=== PATIENT | female | born 1980 | race Two or more races ===

== ENCOUNTER 2016-11-06 07:56 | Emergency (ER) | payer MEDICAID ==
[~2016-11-06] VITALS: Ht 167.6 cm; Wt 70.3 kg
[2016-11-06 09:06] LABS: Urine Bilirubin Negative (Negative); Urine Blood Negative /uL (Negative); Urine Color Yellow (Yellow); Urine Glucose Normal (Normal); Urine Ketone Negative (Negative); Urine Mucus FEW (None Seen); Urine Nitrite Negative (Negative); Urine RBC 1 /hpf (0 - 4); Urine Squamous Epithelial Cell FEW /hpf (<5)
[2016-11-06 09:17] LABS: Basophils # (auto) 0 uL; Basophils % (auto) 0.5 % (0.0-2.0); CONDITION Y; Eosinophils # (auto) 0.1 uL; Eosinophils % (auto) 1.1 % (0.0-7.0); Hemoglobin 14.6 g/dL (12.2-16.2); Lymphocytes # (auto) 1.8 uL; Lymphocytes % (auto) 28.2 % (10.0-50.0); Mean Corpuscular Hemoglobin 31.5 pg (28.0-32.0); Mean Corpuscular Hgb Conc. 33.9 g/dL (32.0-36.0); Mean Corpuscular Volume 92.9 fL (80.0-100.0); Mean Platelet Volume 8.5 fL (7.4-10.4); Monocytes # (auto) 0.5 uL; Monocytes % (auto) 7.1 % (0.0-12.0); Neutrophils % (auto) 63.1 % (37.0-80.0); Platelet Count (auto) 306 10^3/uL (140-450); Red Cell Distribution Width 13.2 % (11.6-16.0); White Blood Cell 6.4 10^3/uL (4.4-10.8)
[2016-11-06 09:48] LABS: Albumin 3.9 g/dL (3.4-5.0); BUN/Creatinine Ratio 10.9; Bilirubin, Total 0.4 mg/dL (0.2-1.0); Calcium 8.8 mg/dL (8.5-10.1); Potassium 3.8 mmol/L (3.5-5.1); Total Protein 7.3 g/dL (6.4-8.2)
[2016-11-06] MEDS ORDERED: FLUCONAZOLE 100 MG TAB PO ONE (11:30)
[2016-11-06 12:54] VITALS: BP 108/73
== END 2016-11-06 13:20 | disposition home or self-care (01) ==
LOC: ER 07:56
DX: R10.9 Unspecified abdominal pain (principal); N89.8 Other specified noninflammatory disorders of vagina; R30.0 Dysuria
CPT/HCPCS: 36415; 80053; 81001; 81025; 85025

== ENCOUNTER 2019-02-03 11:30 | Emergency (ER) | payer MEDICAID ==
[~2019-02-03] VITALS: Ht 165.1 cm; Wt 85.7 kg
[2019-02-03 13:22] VITALS: BP 106/56
[2019-02-03] MEDS ORDERED: TETRACAINE HCL 0.5% OPTH(EYE) SOLN 4ML LEFTEYE ONE (14:30)
[2019-02-03] MEDS ORDERED: FLUORESCEIN SOD 1 MG TEST STRIP OP ONE (14:30)
== END 2019-02-03 15:00 | disposition home or self-care (01) ==
LOC: ER 11:30
DX: H10.32 Unspecified acute conjunctivitis, left eye (principal); R51 Headache
CPT/HCPCS: 70450

== ENCOUNTER 2021-04-13 12:47 | Emergency (ER) | payer MEDICAID ==
[~2021-04-13] VITALS: Ht 162.6 cm; Wt 81.4 kg
[2021-04-13 13:20] LABS: Urine Bacteria NONE SEEN /hpf (None Seen); Urine Blood Negative /uL (Negative); Urine Specific Gravity 1.012 (1.001-1.035); Urine WBC 1 /hpf (0 - 5)
[2021-04-13 13:21] LABS: Basophils # (auto) 0 10 ^3/uL (0-0.2); Basophils % (auto) 0.4 % (0.0-2.0); Eosinophils # (auto) 0 10 ^3/uL (0-0.8); Eosinophils % (auto) 0.6 % (0.0-7.0); Hematocrit 44.7 % (36.0-46.0); Hemoglobin 15.2 g/dL (12.2-16.2); Lymphocytes # (auto) 1.6 10 ^3/uL (0.4-5.4); Lymphocytes % (auto) 19.7 % (10.0-50.0); Mean Corpuscular Hemoglobin 31.7 pg (28.0-32.0); Monocytes # (auto) 0.7 10 ^3/uL (0-1.3); Monocytes % (auto) 8.3 % (0.0-12.0); Neutrophils # (auto) 5.8 10 ^3/uL (1.6-8.6); Nucleated Red Blood Cells % 0.1 %; Red Cell Distribution Width 13.4 % (11.8-14.3); White Blood Cell 8.1 10^3/uL (4.4-10.8)
[2021-04-13 13:34] LABS: Potassium 4.2 mmol/L (3.5-5.1)
[2021-04-13 13:44] LABS: Albumin 3.9 g/dL (3.4-5.0); BUN/Creatinine Ratio 11.5; Bilirubin, Total 0.6 mg/dL (0.2-1.0); Calcium 8.9 mg/dL (8.5-10.1); Magnesium 2.9 mg/dL (1.6-2.6); Total Protein 6.8 g/dL (6.4-8.2)
[2021-04-13 16:45] VITALS: BP 104/61
== END 2021-04-13 16:40 | disposition home or self-care (01) ==
LOC: ER 12:47
DX: Z32.01 Encounter for pregnancy test, result positive (principal); R35.0 Frequency of micturition
CPT/HCPCS: 36415; 80053; 81001; 81025; 83735; 84702; 85025

== ENCOUNTER 2023-04-18 08:08 | Emergency (ER) | payer MEDICAID ==
[~2023-04-18] VITALS: Ht 162.6 cm; Wt 85.6 kg
[2023-04-18 09:09] LABS: Basophils # (auto) 0 10 ^3/uL (0-0.2); Basophils % (auto) 0.3 % (0.0-2.0); Eosinophils # (auto) 0.1 10 ^3/uL (0-0.8); Eosinophils % (auto) 0.7 % (0.0-7.0); Hematocrit 47.3 % (36.0-46.0); Hemoglobin 15.7 g/dL (12.2-16.2); Lymphocytes # (auto) 1.5 10 ^3/uL (0.4-5.4); Lymphocytes % (auto) 17.3 % (10.0-50.0); Mean Corpuscular Hemoglobin 31.5 pg (28.0-32.0); Mean Corpuscular Hgb Conc. 33.1 g/dL (32.0-36.0); Mean Corpuscular Volume 95.1 fL (80.0-100.0); Monocytes # (auto) 0.4 10 ^3/uL (0-1.3); Monocytes % (auto) 4.6 % (0.0-12.0); Neutrophils # (auto) 6.8 10 ^3/uL (1.6-8.6); Neutrophils % (auto) 77.1 % (37.0-80.0); Red Blood Cells 4.98 10^6/uL (4.0-5.20); Red Cell Distribution Width 14.2 % (11.8-14.3); White Blood Cell 8.8 10^3/uL (4.4-10.8)
[2023-04-18 09:26] LABS: Alanine Aminotransferase 18 U/L (7-40); Alkaline Phosphatase 61 U/L (46-116); Anion Gap 8 (5-15); Aspartate Aminotransferase 10 U/L (13-40); BUN/Creatinine Ratio 8.2 (10.0-20.0); Blood Urea Nitrogen 7 mg/dL (9-23); Calcium 9.4 mg/dL (8.5-10.1); Carbon Dioxide 25 mmol/L (20-30); Chloride 104 mmol/L (98-107); Glucose 107 mg/dL (74-106); Potassium 3.8 mmol/L (3.5-5.1); Sodium 137 mmol/L (136-145)
[2023-04-18 09:27] LABS: Bilirubin, Total 0.6 mg/dL (0.2-1.0); INR 1.06 (0.9-1.15); Partial Thromboplastin Time 28.2 SEC (24.5-34.5); Prothrombin Time 11.1 sec (9.3-11.8); Total Protein 6.8 g/dL (5.7-8.2)
[2023-04-18 09:37] LABS: Urine WBC None Seen /hpf (0 - 5)
[2023-04-18 09:54] LABS: Urine Amorphous Crystal FEW /hpf (None Seen); Urine Bacteria NONE SEEN /hpf (None Seen); Urine Blood 3+ /uL (Negative); Urine Clarity HAZY (Clear); Urine Color Yellow (Yellow); Urine Protein, UAD Negative (Negative); Urine Specific Gravity 1.021 (1.001-1.035); Urine Urobilinogen Normal (Negative); Urine pH 6.5 (5.0-8.0)
[2023-04-18 12:19] VITALS: BP 112/65; TEMP 97.7
[2023-04-18] MEDS ORDERED: CEPH250C PO (12:23)
[2023-04-18 12:27] VITALS: PULSE 63; RESP 16; O2SAT 100
== END 2023-04-18 12:36 | disposition home or self-care (01) ==
LOC: ER 08:08
DX: O23.41 Unspecified infection of urinary tract in pregnancy, first trimester (principal); R10.2 Pelvic and perineal pain; N39.0 Urinary tract infection, site not specified; Z3A.01 Less than 8 weeks gestation of pregnancy
CPT/HCPCS: 36415; 76801; 80053; 81001; 84702; 85025; 85610; 85730

== ENCOUNTER 2024-01-24 09:34 | Inpatient (IN) | payer MEDICAID ==
[~2024-01-24] VITALS: Ht 167.6 cm; Wt 82.5 kg
[~2024-01-24 09:34] MED LIST: CEPH250C PO
[2024-01-24 10:23] LABS: Basophils # (auto) 0 10 ^3/uL (0-0.2); Basophils % (auto) 0.5 % (0.0-2.0); Eosinophils # (auto) 0 10 ^3/uL (0-0.8); Eosinophils % (auto) 0.7 % (0.0-7.0); Hematocrit 45.9 % (36.0-46.0); Hemoglobin 15.9 g/dL (12.2-16.2); Lymphocytes # (auto) 1.7 10 ^3/uL (0.4-5.4); Lymphocytes % (auto) 23.3 % (10.0-50.0); Mean Corpuscular Hemoglobin 32.5 pg (28.0-32.0); Mean Corpuscular Hgb Conc. 34.6 g/dL (32.0-36.0); Mean Corpuscular Volume 94.1 fL (80.0-100.0); Monocytes # (auto) 0.3 10 ^3/uL (0-1.3); Monocytes % (auto) 4.8 % (0.0-12.0); Neutrophils # (auto) 5.1 10 ^3/uL (1.6-8.6); Neutrophils % (auto) 70.7 % (37.0-80.0); Platelet Count (auto) 304 10^3/uL (140-450); Red Blood Cells 4.88 10^6/uL (4.0-5.20); Red Cell Distribution Width 13.3 % (11.8-14.3); White Blood Cell 7.2 10^3/uL (4.4-10.8)
[2024-01-24 10:45] LABS: Alanine Aminotransferase 31 U/L (7-40); Albumin 4.5 g/dL (3.2-4.8); Alkaline Phosphatase 68 U/L (46-116); Anion Gap 7 (5-15); Aspartate Aminotransferase 14 U/L (13-40); BUN/Creatinine Ratio 9.4 (10.0-20.0); Blood Urea Nitrogen 9 mg/dL (9-23); Calcium 9.8 mg/dL (8.7-10.4); Carbon Dioxide 24 mmol/L (20-31); Chloride 107 mmol/L (98-107); Glucose 99 mg/dL (74-106); Potassium 4.1 mmol/L (3.5-5.1); Sodium 138 mmol/L (136-145)
[2024-01-24 10:46] LABS: Bilirubin, Total 0.8 mg/dL (0.2-1.0); Total Protein 7.4 g/dL (5.7-8.2)
[2024-01-24] MEDS: ASPirin 81 mg TAB PO ONE (11:05)
[2024-01-24 11:09] VITALS: RESP 18; O2SAT 98
[2024-01-24 15:32] VITALS: PULSE 48; RESP 18; O2SAT 96
[2024-01-24 16:53] LABS: Urine Bacteria FEW /hpf (None Seen); Urine Blood Negative /uL (Negative); Urine Clarity Turbid (Clear); Urine Color Light-Yellow (Yellow); Urine Mucus FEW (None Seen); Urine Protein, UAD TRACE (Negative); Urine Specific Gravity 1.021 (1.001-1.035); Urine Urobilinogen Normal (Negative); Urine WBC 7 /hpf (0 - 5); Urine pH 5.5 (5.0-9.0)
[2024-01-24] MEDS: MORPHINE SULFATE INJ 2 MG/ml SYRG IV PRN (18:42)
[2024-01-24] MEDS: NITROGLYCERIN 0.4 MG SL TAB SL PRN (18:44)
[2024-01-24 19:47] VITALS: PULSE 55; RESP 18; O2SAT 97
[2024-01-24 20:00] VITALS: PULSE 55; PULSE 67; RESP 18; O2SAT 97
[2024-01-24 21:00] VITALS: BP 115/50; PULSE 53; RESP 18; TEMP 97.9; O2SAT 95
[2024-01-25] VITALS (7 sets, daily range): BP systolic 102–117; BP diastolic 46–61; PULSE 52–71; RESP 16–19; TEMP 98–98.6; O2SAT 96–100
[2024-01-25 11:00] LABS: Basophils # (auto) 0 10 ^3/uL (0-0.2); Basophils % (auto) 0.3 % (0.0-2.0); Eosinophils # (auto) 0.1 10 ^3/uL (0-0.8); Eosinophils % (auto) 0.8 % (0.0-7.0); Hematocrit 45.8 % (36.0-46.0); Hemoglobin 15.8 g/dL (12.2-16.2); Lymphocytes # (auto) 1.3 10 ^3/uL (0.4-5.4); Lymphocytes % (auto) 19.5 % (10.0-50.0); Mean Corpuscular Hemoglobin 32.3 pg (28.0-32.0); Mean Corpuscular Hgb Conc. 34.6 g/dL (32.0-36.0); Mean Corpuscular Volume 93.5 fL (80.0-100.0); Monocytes # (auto) 0.2 10 ^3/uL (0-1.3); Monocytes % (auto) 2.5 % (0.0-12.0); Neutrophils # (auto) 5.2 10 ^3/uL (1.6-8.6); Neutrophils % (auto) 76.9 % (37.0-80.0); Platelet Count (auto) 286 10^3/uL (140-450); Red Cell Distribution Width 13.2 % (11.8-14.3); White Blood Cell 6.7 10^3/uL (4.4-10.8)
[2024-01-25 11:07] LABS: Anion Gap 6 (5-15); Carbon Dioxide 27 mmol/L (20-31); Chloride 106 mmol/L (98-107); Potassium 3.9 mmol/L (3.5-5.1); Sodium 139 mmol/L (136-145)
[2024-01-25 11:09] LABS: Calcium 9.7 mg/dL (8.7-10.4)
[2024-01-25 11:13] LABS: Glucose 112 mg/dL (74-106); Triglycerides 138 mg/dL (< 150)
[2024-01-25 11:14] LABS: BUN/Creatinine Ratio 9.8 (10.0-20.0); Blood Urea Nitrogen 9 mg/dL (9-23); LDL Cholesterol 145 mg/dL (< 100)
[2024-01-25 11:15] LABS: Cholesterol 192 mg/dL (< 200); HDL Cholesterol 33 mg/dL (40-59)
[2024-01-25] MEDS ORDERED: IBUPROFEN 400 MG TAB PO PRN (18:30)
[2024-01-25] MEDS: PANTOPRAZOLE 40 MG TAB PO ONE (18:45)
[2024-01-25] MEDS: ATORVASTATIN 20 MG TAB PO SCH (21:25)
[2024-01-26] VITALS (7 sets, daily range): BP systolic 101–110; BP diastolic 46–70; PULSE 53–59; RESP 17–20; TEMP 97.3–98.7; O2SAT 95–100
[2024-01-26] MEDS: PANTOPRAZOLE 40 MG TAB PO SCH (05:30)
[2024-01-26 07:07] LABS: Basophils # (auto) 0 10 ^3/uL (0-0.2); Basophils % (auto) 0.4 % (0.0-2.0); Eosinophils # (auto) 0.1 10 ^3/uL (0-0.8); Eosinophils % (auto) 1.2 % (0.0-7.0); Hematocrit 46.4 % (36.0-46.0); Hemoglobin 15.8 g/dL (12.2-16.2); Lymphocytes # (auto) 1.9 10 ^3/uL (0.4-5.4); Mean Corpuscular Hemoglobin 32.2 pg (28.0-32.0); Mean Corpuscular Hgb Conc. 34.2 g/dL (32.0-36.0); Mean Corpuscular Volume 94.2 fL (80.0-100.0); Monocytes # (auto) 0.5 10 ^3/uL (0-1.3); Monocytes % (auto) 6.1 % (0.0-12.0); Neutrophils # (auto) 5.8 10 ^3/uL (1.6-8.6); Neutrophils % (auto) 69.3 % (37.0-80.0); Nucleated Red Blood Cells % 0.1 %; Platelet Count (auto) 295 10^3/uL (140-450); Red Blood Cells 4.92 10^6/uL (4.0-5.20); Red Cell Distribution Width 13.1 % (11.8-14.3); White Blood Cell 8.4 10^3/uL (4.4-10.8)
[2024-01-26 07:23] LABS: Anion Gap 5 (5-15); Carbon Dioxide 26 mmol/L (20-31); Chloride 107 mmol/L (98-107); Potassium 4.1 mmol/L (3.5-5.1); Sodium 138 mmol/L (136-145)
[2024-01-26 07:24] LABS: Calcium 9.6 mg/dL (8.7-10.4)
[2024-01-26 07:29] LABS: BUN/Creatinine Ratio 9.3 (10.0-20.0); Blood Urea Nitrogen 9 mg/dL (9-23); Glucose 89 mg/dL (74-106)
[2024-01-26] MEDS: ACETAMINOPHEN 325 MG TAB PO PRN (08:14)
[2024-01-26] MEDS ORDERED: CHOL1TAB30 PO (09:22)
[2024-01-26 11:02] LABS: Hepatitis B Surface Antigen Negative (Negative)
[2024-01-26 11:23] LABS: Hepatitis C Antibody Negative (Negative)
[2024-01-26] MEDS: DOCUSATE SOD 100 MG CAP PO PRN (12:07)
[2024-01-27] VITALS (7 sets, daily range): BP systolic 99–113; BP diastolic 45–67; PULSE 53–84; RESP 13–20; TEMP 97.4–98.4; O2SAT 96–100
[2024-01-27 06:26] LABS: Chloride 104 mmol/L (98-107); Potassium 3.8 mmol/L (3.5-5.1); Sodium 138 mmol/L (136-145)
[2024-01-27 06:27] LABS: Anion Gap 8 (5-15); Calcium 9.8 mg/dL (8.7-10.4); Carbon Dioxide 26 mmol/L (20-31)
[2024-01-27 06:32] LABS: BUN/Creatinine Ratio 9.6 (10.0-20.0); Blood Urea Nitrogen 10 mg/dL (9-23); Glucose 90 mg/dL (74-106)
[2024-01-27 06:42] LABS: Basophils # (auto) 0 10 ^3/uL (0-0.2); Basophils % (auto) 0.3 % (0.0-2.0); Eosinophils # (auto) 0.1 10 ^3/uL (0-0.8); Hematocrit 47.2 % (36.0-46.0); Hemoglobin 16.4 g/dL (12.2-16.2); Lymphocytes # (auto) 2.3 10 ^3/uL (0.4-5.4); Lymphocytes % (auto) 25.5 % (10.0-50.0); Mean Corpuscular Hemoglobin 32.6 pg (28.0-32.0); Mean Corpuscular Hgb Conc. 34.8 g/dL (32.0-36.0); Mean Corpuscular Volume 93.8 fL (80.0-100.0); Monocytes # (auto) 0.6 10 ^3/uL (0-1.3); Monocytes % (auto) 6.3 % (0.0-12.0); Neutrophils # (auto) 5.9 10 ^3/uL (1.6-8.6); Neutrophils % (auto) 66.9 % (37.0-80.0); Platelet Count (auto) 281 10^3/uL (140-450); Red Blood Cells 5.03 10^6/uL (4.0-5.20); Red Cell Distribution Width 13.2 % (11.8-14.3); White Blood Cell 8.9 10^3/uL (4.4-10.8)
[2024-01-27] MEDS ORDERED: SODIUM CHLORIDE LOCK 10 ML ONE (10:47)
[2024-01-27] MEDS ORDERED: FLUMAZENIL 0.1 MG/ML INJ 10ML MDV IV ONE (10:47)
[2024-01-27] MEDS ORDERED: NALOXONE HCL 0.4 MG/ML VIAL ONE (10:47)
[2024-01-27] MEDS ORDERED: fentaNYL CITRATE 100 MCG/2 ML VL ONE (10:49)
[2024-01-27] MEDS ORDERED: diphenhdrAMINE HCL 50 MG/1 ML VL ONE (10:49)
[2024-01-27] MEDS ORDERED: MIDAZOLAM HCL 5 MG/ML-1ML VIAL ONE (10:49)
[2024-01-27] MEDS: LIDOCAINE VISCOUS 2% 15ML UD ONE (13:47)
[2024-01-27] MEDS: MIDAZOLAM HCL 5 MG/ML-1ML VIAL IV ONE (13:50)
[2024-01-27] MEDS ORDERED: PANT40T PO (15:56)
[2024-01-27] MEDS ORDERED: ATOR20TA50 PO (15:56)
[2024-01-27] MEDS ORDERED: SUCR1SUS26 PO (15:56)
[2024-01-27] MEDS ORDERED: SUCRALFATE 1 GM/10 ML ORAL SUSP GT SCH (22:00)
== END 2024-01-27 18:30 | disposition home or self-care (01) | DRG 241 ==
LOC: ER 09:34 → TELE 15:53 → TELE-WESTW 18:07
PROVIDERS: ADMIT Internal Medicine; ATTEND Internal Medicine
PROC: 0DB68ZX Excision of Stomach, Via Natural or Artificial Opening Endoscopic, Diagnostic (ICD-10-PCS; 2024-01-27)
PROC: 0DB98ZX Excision of Duodenum, Via Natural or Artificial Opening Endoscopic, Diagnostic (ICD-10-PCS; principal; 2024-01-27 13:37)
DX: K29.70 Gastritis, unspecified, without bleeding (principal); E66.9 Obesity, unspecified; M79.18 Myalgia, other site; K29.90 Gastroduodenitis, unspecified, without bleeding; E78.5 Hyperlipidemia, unspecified; K21.9 Gastro-esophageal reflux disease without esophagitis; F41.9 Anxiety disorder, unspecified; R07.89 Other chest pain; K44.9 Diaphragmatic hernia without obstruction or gangrene; Z68.29 Body mass index [BMI] 29.0-29.9, adult; Z83.3 Family history of diabetes mellitus; Z79.2 Long term (current) use of antibiotics
CPT/HCPCS: 36415; 43239; 71046; 80048; 80053; 80061; 81001; 83036; 83735; 84443; 84484; 84702; 85025; 86803; 87340; 93005; 93306; G0378; J2250